=== PATIENT | male | born 1955 | race Caucasian/White ===

== ENCOUNTER 2021-01-19 13:57 | Emergency (ER) | payer OTHER ==
[~2021-01-19] VITALS: Ht 182.9 cm; Wt 81.8 kg
[~2021-01-19 13:57] MED LIST: NO HOME MEDICATIONS
[2021-01-19] MEDS ORDERED: TYLENOL 500MG500 MG PO (15:30)
[2021-01-19] MEDS ORDERED: VOLTAREN 75 DR75 MG PO (15:31)
[2021-01-19 16:24] VITALS: BP 142/92; PULSE 76; TEMP 97.2
== END 2021-01-19 16:31 | disposition home or self-care (01) ==
LOC: COL.ER 13:57
DX: S83.92XA Sprain of unspecified site of left knee, initial encounter (principal); X50.0XXA Overexertion from strenuous movement or load, initial encounter; Y92.59 Other trade areas as the place of occurrence of the external cause; Y99.0 Civilian activity done for income or pay

== ENCOUNTER 2021-01-24 13:57 | Outpatient (RCR) | payer OTHER ==
[~2021-01-24 13:57] MED LIST changes: +TYLENOL 500MG500 MG PO; +VOLTAREN 75 DR75 MG PO
== END 2021-04-24 | disposition home or self-care (01) ==
LOC: WSOH
DX: M17.12 Unilateral primary osteoarthritis, left knee (principal); Y99.0 Civilian activity done for income or pay; Z98.890 Other specified postprocedural states